=== PATIENT | male | born 1985 | race Caucasian/White ===

== ENCOUNTER 2024-06-24 10:06 | Outpatient (REF) | payer SELFPAY ==
[2024-06-24 11:21] LABS: MANUAL DIFF FLAG NO
--- OUTSIDE RECORDS SUMMARY | 2024-06-24 11:29 | XMS_ITS | Clinical Summary ---
Author Organization [facility] ity Address [address] [place] [address] Care Team Providers Care Dowel Sticker Operator Name Role Phone Unavailable Primary Care Provider Unavailabl e Social History Tobacco Use Types Packs/Day Years Used Date Smoking Tobacco: Never Assessed Sex and Gender Information Value Date Recorded Sex Assigned at Not on file Legal Sex Male 3:58 AM EST Gender Identity Not on file Sexual Orientation Not on file Plan of Treatment Health Maintenance Due Date Last Done Comments DTaP,Tdap,and Td Vaccines (1 - Tdap) 2006 Hepatitis B Vaccines (1 of 3 - 19+ 3-dose series) 2006 COVID-19 Vaccine (2023-2 5 season) 2023 Influenza Vaccine (Season Ended) 2024 HIB Vaccines Aged Out No longer eligi ble based on patient's age to complete this topic HPV Vaccines Aged Out No longer eligi ble based on patient's age to complete this topic Hepatitis A Vaccines Aged Out No long er eligible based on patient's age to complete this topic IPV Vaccines Aged Out No longer eligi ble based on patient's age to complete this topic MMR Vaccines Aged Out No longer eligi ble based on patient's age to complete this topic Meningococcal ACWY Vaccine Aged Out N o longer eligible based on patient's age to complete this topic Meningococcal B Vacine Aged Out No lo nger eligible based on patient's age to complete this topic Pneumococcal Vaccine: Pediat rics (0 to 5 Years) and At-Risk Patients (6 to 64 Years) Aged Out No longer eligible b ased on patient's age to complete this topic RSV Immunization Patients Un dora 20 months Aged Out No longer eligible b ased on patient's age to complete this topic Varicella Vaccines Aged Out No longer eligible based on patient's age to complete this topic
--- OUTSIDE RECORDS SUMMARY | 2024-06-24 11:29 | XMS_ITS | Encounter Summary ---
Author Organization [facility] Address [address] [facility] 7t [place] [address] Care Team Providers Care Supervisor International Reservations Name Role Phone Regina Moran NP Primary Care Provider [phone] Encounter Details Date Type Department Care Team (Latest Contact Info) Description 06/24/2024 Travel Social History Tobacco Use Types Packs/Day Years Used Date Smoking Tobacco: Never Smokeless Tobacco: Never Sex and Gender Information Value Date Recorded Sex Assigned at Male 01/20/2022 10:36 AM EDT Legal Sex Male 10:36 AM EDT Gender Identity Male 01/20/2022 10:36 AM EDT Sexual Orientation Straight 01/20/2022 10 :36 AM EDT documented as of this encounter Plan of Treatment Upcoming Encounters Date Type Department Care Team (Late st Contact Info) Description 07/22/2024 9:00 AM EDT Office Visit [facility] MEDICINE [address] [place] [phone] Bernabe Lucero MD [address] [place] [phone] 09/12/2024 1:00 PM EDT Office Visit [facility] MEDICINE [address] [place] [phone] Regina Moran NP [address] [place] [address] documented as of this encounter Visit Diagnoses Not on filedocumented in this encounter Care Teams Supervisor International Reservations Relationship Specialty Start Date End Date Regina Moran NP [address] [place] [id number] PCP - General Family Medicine 11/25/23 documented as of this encounter
--- OUTSIDE RECORDS SUMMARY | 2024-06-24 11:29 | XMS_ITS | Clinical Summary ---
Author Organization [employer] Address [address] [facility] 7t [place] [address] Care Team Providers Care Plate Gauger Name Role Phone Luisa Regina MIKA Primary Care Provider [phone] Allergies Active Allergy Reactions Criticality Noted Date Comments Sulfa Antibiotics Rash Low 11/11/2016 Medications calcipotriene (Dovonex) 0.005 % ointment Apply topically 2 times daily. 60 g 3 08/05/19 24 Active pimecrolimus (Elidel) 1 % cream Apply topically 2 times daily. 60 g 1 09/16/19 24 025 Active methotrexate 2.5 MG tabletIndicati ons:Psoriasis of scalp,Sebopsor iasis,Inverse psoriasis Take 6 tablets (15 mg total) by mouth 1 (one) time per week. Follow directions carefully, and ask to explain any part you do not understand. Take exactly as directed. 24 tablet 3 06/25/19 25 Active folic acid (Folvite) 1 MG tabletIndicati ons:Psoriasis of scalp,Sebopsor iasis,Inverse psoriasis Take 1 tablet (1 mg) by mouth Once per day. 30 tablet 11 06/25/19 25 026 Active triamcinolone (Kenalog) 0.025 % creamIndicatio ns:Psoriasis of scalp,Sebopsor iasis,Inverse psoriasis Apply topically 2 times daily. 454 g 1 06/25/19 25 Active ketoconazole (NIZOral) 2 % shampooIndicat ions:Sebopsori asis Apply topically 2 (two) times a week. 120 mL 1 06/28/19 25 Active clobetasol (Temovate) 0.05 % creamIndicatio ns:Psoriasis Apply topically if needed in the morning and at bedtime (for psoriasis). 60 g 2 06/04/19 24 025 ketoconazole (NIZOral) 2 % shampoo Apply topically 1 (one) time per week. 120 mL 1 09/16/19 24 025 Discontinued Active Problems Problem Noted Date Diagnosed Date Seborrheic dermatitis 09/21/2023 Overview (09/21/2023): Patient treated unsuccessfully with Dovonex cream to face. The new plan is to treat with Nizoral shampoo and Protopic cream for persistent symptoms. Hemorrhoids 08/11/2016 Eczema of face 08/06/2015 Hypothyroidism 07/17/2015 Overview (10/07/2023): TSH=11.4(06/2015)---> 6.54(07/2015, started Levothyroxine 125mcg). Anti thyroglobulin Ab+ and Anti TPO Ab+. Reportedly he had rash w/ levothyroxine and stopped in [facility]. 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 Given the risk of another allergic reaction we will cautiously start the patient on Tirosin which has been shownto be less allergenogenic in patients prone to allergies. Patient was instructed to stop taking his medication and call the office if he develops any skin rash. He was also instructed to go to the emergency room if he develops significant skin rash, swelling of his face, lips or tongue, or difficulties breathing. Otherwise he may continue on the medication and we will repeat his thyroid function tests in 6 weeks and adjust the dose if necessary. Patient was counselled on the symptoms of both hypothyroidism as well as hyperthyroidism and will call us in the event any such symptoms occur. If everything goes well we will see him for follow-up in one year. he did not have labs in 6 wks or f/u yet. Obesity (BMI 30-39.9) 07/16/2015 Tinea cruris 07/16/2015 Encounters Date Type Department Care Team Description 06/24/2024 9:15 AM EDT Office Visit [address] [address] Bernabe Lucero MD Psoriasis of scalp (Primary Dx); Sebopsoriasis; Inverse psoriasis 06/24/2024 Travel 06/15/[address] [address] Isamar Painter [place] Appointment Request 06/14/[address] [address] Regina Moran NP Appointment Request from Last 3 Months Immunizations Name Administration Dates Next Due Tdap 12/29/2018,02/04/2018 Social History Tobacco Use Types Packs/Day Years Used Date Smoking Tobacco: Never Smokeless Tobacco: Never Tobacco Cessation:Counseling Given: Not Answered Sex and Gender Information Value Date Recorded Sex Assigned at Male 01/20/2022 10:36 AM EDT Legal Sex Male 10:36 AM EDT Gender Identity Male 01/20/2022 10:36 AM EDT Sexual Orientation Straight 01/20/2022 10 :36 AM EDT Last Filed Vital Signs Vital Sign Reading Time Taken Comments Blood Pressure 130/74 06/24/2024 9:32 AM EDT Pulse 80 06/24/2024 9:32 AM EDT Temperature 37.1 ??C (98.7 ??F) 06/24/2024 9:32 AM ED T Respiratory Rate 16 06/24/2024 9:32 AM EDT Oxygen Saturation 97% 09/16/2023 10:10 AM EDT Inhaled Oxygen Concentration - - Weight 112 kg (246 lb 6 oz) 06/24/2024 9:32 AM E DT Height 177.8 cm (5' 10 ) 06/24/2024 9:32 AM EDT Body Mass Index 35.35 06/24/2024 9:32 AM EDT Plan of Treatment Upcoming Encounters Date Type Department Care Team (Late st Contact Info) Description 07/22/2024 9:00 AM EDT Office Visit [address] [address] Bernabe Lucero MD [address] [place] [address], [place] [phone] 09/12/2024 1:00 PM EDT Office Visit [facility] MEDICINE [address] [place], [place] [phone] Regina Moran NP [address] [place], [place] [phone] Health Maintenance Due Date Last Done Comments Depression Screening 1987 SDOH Screening 1987 Alcohol/Substance Use Screening 1999 Family Planning (PISQ) 2002 Hepatitis C Screening 2005 Hepatitis B Vaccines (1 of 3 - 19+ 3-dose series) 2006 COVID-19 Vaccine ( - 2023-2 5 season) 2023 Influenza Vaccine (#1) 2023 Tobacco Screening 09/20/2024 09/21/2023 Lipid Panel 10/14/2026 10/14/2021 DTaP/Tdap/Td Vaccines (3 - T d or Tdap) 12/29/2028 12/29/2018, 02/04/2018 Zoster Vaccines (1 of 2) 2037 RSV Patients and Patients Aged 60 years or older (1 - 1-dose 75+ series) 2062 HIV Screening Completed 10/14/2021 HIB Vaccines Aged Out No longer eligi [...] patient's age to complete this topic Meningococcal Vaccine Aged Out No phi booker eligible based on patient's age to complete this topic Pneumococcal Vaccine: Pediatrics (0 to 5 Years) and At-Risk Patients (6 to 49) Years) Aged Out No longer eligible b ased on patient's age to complete this topic RSV under 20 months Aged Out No longe r eligible based on patient's age to complete this topic Rotavirus Vaccines Aged Out No longer eligible based on patient's age to complete this topic Procedures Procedure Name Priority Date/Time Associated Diagnosis Comments HIV 1/2 ANTIGEN/ANTIBODY, FOURTH GENERATION W/RFL Routine 10/14/2021 3:21 PM EDT LIPID PANEL, STANDARD Routine 10/14/2021 3:21 PM EDT from Last 3 Months or Most Recently Relevant to Health Maintenance Results * HIV 1/2 ANTIGEN/ANTIBODY,FOURTH GENERATION W/RFL (10/14/2021 3:21 PM EDT) [facility] HIV-1/2 ANTIGEN AND ANTIBODIES, 4TH GENERATION W/ REFLEX NON-REACT DOUG NON-REACT DOUG [facility] Comment: HIV-1 antigen and HIV-1/HIV-2 antibodies were not detected. There is no laboratory evidence of HIV infection. ?? PLEASE NOTE: This information has been disclosed to you from records whose confidentiality may be protected by state law. ??If your state requires such protection, then the state law prohibits you from making any further disclosure of the information without the specific written consent of the person to whom it pertains, or as otherwise permitted by law. A general authorization for the release of medical or other information is NOT sufficient for this purpose. ? For additional information please refer to http://education.Brainwave Education.Flapshare/faq/VTW809 (This link is being provided for informational/ educational purposes only.) ? The performance of this assay has not been clinically validated in patients less than 2 years old. ?? 10/14/2021 3:21 PM EDT us Jean Nagel MD LAB BLOOD ORDERABLES Final R esult [facility] [address] * (ABNORMAL) LIPID PANEL, STANDARD (10/14/2021 3:21 PM EDT) [facility] Chol/HDLC Ratio 4.1 <5.0 (calc) [facility] Cholesterol, Total 153 <200 mg/dL [facility] HDL Cholesterol 37(L) > OR = 40 mg/dL [facility] LDL Cholesterol 89 mg/dL (calc) [facility] Comment: Reference range: <100 ?? Desirable range <100 mg/dL for primary prevention; ?? <70 mg/dL for patients with CHD or diabetic patients ?? with > or = 2 CHD risk factors. ?? LDL-C is now calculated using the Panfilo ?? calculation, which is a validated novel method providing ?? better accuracy than the Friedewald equation in the ?? estimation of LDL-C. ?? Chester SMALLWOOD et al. IZZY. 2013;310(19): 0719-1017 ?? (http://H3 Polímeros.Help Me Rent Magazine/faq/ORI829) Non-HDL Cholesterol 116 <130 mg/dL (calc) [facility] Comment: For patients with diabetes plus 1 major ASCVD risk ?? factor, treating to a non-HDL-C goal of <100 mg/dL ?? (LDL-C of <70 mg/dL) is considered a therapeutic ?? option. Triglycerides 178(H) <150 mg/dL [facility] 10/14/2021 3:21 PM EDT us Jean Nagel MD LAB BLOOD ORDERABLES Final R esult [facility] [address] from Last 3 Months or Most Recently Relevant to Health Maintenance Insurance [facility] PPO Care Teams Plate Gauger Relationship Specialty Start Date End Date Regina Moran NP [address] [place] [phone] PCP - General Family Medicine 11/25/23
--- OUTSIDE RECORDS SUMMARY | 2024-06-24 11:29 | XMS_ITS | Clinical Summary ---
Author Organization [facility] Address [address] [place] [address] Care Team Providers Care Plate Straightener Name Role Phone Beth Beverlyreet SUPERVISOR MAINTENANCE Primary Care Provider [phone] Source Comments PLEASE NOTE, if this patient is a minor, it may be UNLAWFUL to discuss sensitive information that is contained in these records (such as FAMILY PLANNING, MENTAL HEALTH or SUBSTANCE ABUSE) with the minor patient's parent or other person without the patient's specific authorization.[facility] Allergies Active Allergy Reactions Criticality Noted Date Comments Sulfa (Sulfonamide Antibiotics) Rash 10/22 Medications levothyroxine (TIROSINT) 125 mcg capsule Take 125 mcg by mouth every morning Active docusate sodium (COLACE) 100 mg capsuleIndication s:Constipation, unspecified constipation type Take 1 Cap by mouth 2 (two) times daily 60 Cap 5 8 Active polyethylene glycol 3350 (GLYCOLAX, MIRALAX) 17 gram packetIndications :Constipation, unspecified constipation type Take 17 g by mouth once daily 30 Each 3 8 Active clotrimazole-beta methasone (LOTRISONE) 1-0.05 % creamIndications: Tinea cruris Apply topically 2 (two) times daily 45 g 8 Active Active Problems Problem Noted Date Diagnosed Date Hemorrhoids 08/11/2016 Eczema of face 08/06/2015 Hypothyroidism 07/17/2015 Overview (05/29/2016): TSH=11.4(06/2015)---> 6.54(07/2015, started Levothyroxine 125mcg). Anti thyroglobulin Ab+ and Anti TPO Ab+. Reportedly he had rash w/ levothyroxine and stopped in [facility] ER. Was seen by Endocrine [place] [facility] [place], hypothyroidism likely [...] Obesity (BMI 30-39.9) 07/16/2015 Tinea cruris 07/16/2015 Immunizations Immunization Administration Dates Next Due TDAP 02/04/2018 Family History Medical History Relation Name Comments Cancer Mother breast ca Asthma Sister Lupus Relation Name Status Comments Father Alive Mother Alive Sister Lupus Alive Social History Tobacco Use Types Packs/Day Years Used Date Smoking Tobacco: Never Smokeless Tobacco: Never Tobacco Cessation:Counseling Given: Yes Alcohol Use Standard Drinks/Week Comments Yes 3 (1 standard drink = 0.6 oz pur e alcohol) very occasionally Social Connections Answer Date Recorded Social Connections and Isolation 0 11/14/2018 Financial Resource Strain Answer Date R ecorded Financial Resource Strain 0 2018 Stress Answer Date Recorded Stress 0 11/14/2018 Physical Activity Answer Date Recorded Physical Activity 0 11/14/2018 Food Insecurity Answer Date Recorded Food 0 11/14/2018 Transportation Needs Answer Date Record ed Transportation 0 11/14/2018 Housing Stability Answer Date Recorded Housing 0 11/14/2018 Safety and Environment Answer Date Huber rded Safety 0 11/14/2018 Utilities Answer Date Recorded Utilities 0 11/14/2018 Employment Answer Date Recorded Employment 0 11/14/2018 Sex and Gender Information Value Date Recorded Sex Assigned at Male 02/04/2018 7:20 AM PST Legal Sex Male 11:53 AM PST Gender Identity Male 02/04/2018 7:20 AM PST Sexual Orientation Straight 02/04/2018 7: 20 AM PST 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 Not on file Not on file Not on file Last Filed Vital Signs Vital Sign Reading Time Taken Comments Blood Pressure 110/68 02/04/2018 10:21 AM EST Pulse 68 02/04/2018 10:21 AM EST Temperature 36.4 ??C (97.5 ??F) 02/04/2018 10:[address] Respiratory Rate 16 02/04/2018 10:21 AM EST Oxygen Saturation - - Inhaled Oxygen Concentration - - Weight 91.2 kg (201 lb) 02/04/2018 10:21 AM EST Height 176 cm (5' 9.29 ) 02/04/2018 10:21 AM EST Body Mass Index 29.43 02/04/2018 10:21 AM EST Plan of Treatment Not on file Insurance [employer] Care Teams Plate Straightener Relationship Specialty Start Date End Date Loc Beverly NP [address] [place] [id number] PCP - General SUPERVISOR MAINTENANCE Nurse Practitioner 01/21/18
--- OUTSIDE RECORDS SUMMARY | 2024-06-24 11:29 | XMS_ITS | Encounter Summary ---
Author Organization [employer] Address [address] [facility] 7t [place] [address] Care Team Providers Care Jowl Trimmer Name Role Phone Regina Moran MIKA Primary Care Provider [phone] Encounter Details Date Type Department Care Team (Late st Contact Info) Description 06/24/2024 9:15 AM EDT Office Visit [facility] MEDICINE [address] [place] [address] Bernabe Lucero MD [address] [place] [address] Psoriasis of scalp (Primary Dx); Sebopsoriasis; Inverse psoriasis Social History Tobacco Use Types Packs/Day Years Used Date Smoking Tobacco: Never Smokeless Tobacco: Never Sex and Gender Information Value Date Recorded Sex Assigned at Male 01/20/2022 10:36 AM EDT Legal Sex Male 10:36 AM EDT Gender Identity Male 01/20/2022 10:36 AM EDT Sexual Orientation Straight 01/20/2022 10 :36 AM EDT documented as of this encounter Last Filed Vital Signs Vital Sign Reading Time Taken Comments Blood Pressure 130/74 06/24/2024 9:32 AM EDT Pulse 80 06/24/2024 9:32 AM EDT Temperature 37.1 ??C (98.7 ??F) 06/24/2024 9:32 AM ED T Respiratory Rate 16 06/24/2024 9:32 AM EDT Oxygen Saturation - - Inhaled Oxygen Concentration - - Weight 112 kg (246 lb 6 oz) 06/24/2024 9:32 AM E DT Height 177.8 cm (5' 10 ) 06/24/2024 9:32 AM EDT Body Mass Index 35.35 06/24/2024 9:32 AM EDT documented in this encounter Progress Notes * Kefah Al-Ramahi, MD - 06/24/2024 9:15 AM EDT Subjective Patient ID: Keny Raza is a 39 y.o. male who presents for No chief complaint on file.. HPI 39 yr old man with hx of psoriasis and previously treated with topical tx without improvement. Review of Systems Constitutional: Negative for diaphoresis, fatigue and fever. HENT: Negative for ear discharge, ear pain, facial swelling and hearing loss. Respiratory: Negative for cough, choking, chest tightness and shortness of breath. Cardiovascular: Negative for chest pain and leg swelling. Gastrointestinal: Negative for abdominal distention, abdominal pain and anal bleeding. Endocrine: Negative for cold intolerance and heat intolerance. Genitourinary: Negative for enuresis, flank pain and frequency. Musculoskeletal: Negative for arthralgias, back pain and gait problem. Skin: Positive for rash. Neurological: Negative for dizziness, facial asymmetry and headaches. Psychiatric/Behavioral: Negative for agitation, behavioral problems and confusion. Objective Physical Exam Constitutional: Appearance: Normal appearance. HENT: Head: Normocephalic. Nose: Nose normal. Eyes: Extraocular Movements: Extraocular movements intact. Pulmonary: Effort: Pulmonary effort is normal. Musculoskeletal: Cervical back: Normal range of motion and neck supple. Skin: General: Skin is warm and dry. Comments: Erythematous scaly plaques on face Erythematous plaques without scaling in umbilicus , between buttocks and penis as well genitalia Neurological: Mental Status: He is alert. Mental status is at baseline. Assessment/Plan 39 yr old man with hx of psoriasis for yrs has been on topical tx only, with little relief, here today for consultation. His condition is unstable It involves his face, scalp and intertriginous areas like umbilicus, between buttocks and genitals. At this stage his psoriasis would not respond to topicals and he would need systemic tx Blood work ordered for baseline eval He will be started in Methotrexate and folic acid Tac 0.025% cream RX sent (not to exceed 4 weeks of tx) For his facial and scalp plaques , there is potential for Alistair dermatitis occurring simultaneously, so I added Nizoral shampoo 2% 2-3 times weekly RTC in 6-8 weeks Diagnoses and all orders for this visit: Psoriasis of scalp - CBC auto differential; Future - Comprehensive Metabolic Panel; Future - QuantiFERON TB Gold; Future - Hepatitis A,B,C Profile; Future - HIV-1/2 Antigen and Antibodies, Fourth Generation, with Reflexes; Future - methotrexate 2.5 MG tablet; Take 6 tablets (15 mg total) by mouth 1 (one) time per week. Follow directions carefully, and ask to explain any part you do not understand. Take exactly as directed. - folic acid (Folvite) 1 MG tablet; Take 1 tablet (1 mg) by mouth Once per day. - triamcinolone (Kenalog) 0.025 % cream; Apply topically 2 times daily. Sebopsoriasis - CBC auto differential; Future - Comprehensive Metabolic Panel; Future - QuantiFERON TB Gold; Future - Hepatitis A,B,C Profile; Future - HIV-1/2 Antigen and Antibodies, Fourth Generation, with Reflexes; Future - methotrexate 2.5 MG tablet; Take 6 tablets (15 mg total) by mouth 1 (one) time per week. Follow directions carefully, and ask to explain any part you do not understand. Take exactly as directed. - folic acid (Folvite) 1 MG tablet; Take 1 tablet (1 mg) by mouth Once per day. - triamcinolone (Kenalog) 0.025 % cream; Apply topically 2 times daily. - ketoconazole (NIZOral) 2 % shampoo; Apply topically 2 (two) times a week. Inverse psoriasis - CBC auto differential; Future - Comprehensive Metabolic Panel; Future - QuantiFERON TB Gold; Future - Hepatitis A,B,C Profile; Future - HIV-1/2 Antigen and Antibodies, Fourth Generation, with Reflexes; Future - methotrexate 2.5 MG tablet; Take 6 tablets (15 mg total) by mouth 1 (one) time per week. Follow directions carefully, and ask to explain any part you do not understand. Take exactly as directed. - folic acid (Folvite) 1 MG tablet; Take 1 tablet (1 mg) by mouth Once per day. - triamcinolone (Kenalog) 0.025 % cream; Apply topically 2 times daily. documented in this encounter Plan of Treatment Upcoming Encounters Date Type Department Care Team (Late st Contact Info) Description 07/22/2024 9:00 AM EDT Office Visit [facility] MEDICINE [address] [place] [address] Bernabe Lucero MD [address] [place] [address] 09/12/2024 1:00 PM EDT Office Visit [facility] MEDICINE [address] [place] [address] Regina Moran NP [address] [place] [address] Scheduled Orders Name Type Priority Associated Diagnoses Orde r Schedule CBC auto differential Lab Routine Psoriasis of scalp Sebopsoriasis Inverse psoriasis Expected: 06/24/2024 (Approximate), Expires: 06/24/2025 Comprehensive Metabolic Panel Lab Routine Psoriasis of scalp Sebopsoriasis Inverse psoriasis Expected: 06/24/2024 (Approximate), Expires: 06/24/2025 QuantiFERON TB Gold Lab Routine Psoriasis of scalp Sebopsoriasis Inverse psoriasis Expected: 06/24/2024 (Approximate), Expires: 06/24/2025 Hepatitis A,B,C Profile Lab Routine Psoriasis of scalp Sebopsoriasis Inverse psoriasis Expected: 06/24/2024, Expires: 06/24/2025 HIV-1/2 Antigen and Antibodies, Fourth Generation, with Reflexes Lab Routine Psoriasis of scalp Sebopsoriasis Inverse psoriasis Expected: 06/24/2024 (Approximate), Expires: 06/24/2025 documented as of this encounter Visit Diagnoses Diagnosis Psoriasis of scalp- Primary Sebopsoriasis Inverse psoriasis Other psoriasis documented in this encounter Care Teams Jowl Trimmer Relationship Specialty Start Date End [place] [address] PCP - General Family Medicine 11/25/23 documented as of this encounter
[2024-06-24 11:33] LABS: Basophils Percent Auto 0.5 % (0-2); Eosinophils Absolute Auto 0.2 X10*3/uL (0.0-0.4); Eosinophils Percent Auto 2.1 % (0-4); Hematocrit 43.5 % (42.0-52.0); Hemoglobin 14.6 g/dl (14.0-18.0); Imm Gran Abs Auto 0.02 X10*3/uL (0.00-0.03); Imm Gran Pct Auto 0.3 % (0.0-0.4); Lymphocytes Absolute Auto 1.7 X10*3/uL (1.2-4.9); Lymphocytes Percent Auto 22.6 % (20-40); Mean Corpuscular HGB Conc 33.6 g/dl (31.0-36.0); Mean Corpuscular Hemoglobin 29.7 pg (27.0-33.0); Mean Corpuscular Volume 88.4 fL (80.0-98.0); Mean Platelet Volume 10.7 fL (9.4-12.4); Monocytes Absolute Auto 0.6 X10*3/uL (0.1-1.2); Monocytes Percent Auto 7.5 % (2-11); Neutrophils Absolute Auto 5.2 x10*3/uL (2.0-8.3); Platelet Count 256 X10*3/uL (160-400); Red Blood Count 4.92 X10*6/uL (4.60-5.80); Red Cell Distribution Width 12.8 % (11.0-16.0); White Blood Count 7.7 X10*3/uL (4.8-10.8)
[2024-06-24 12:37] LABS: Alanine Aminotransferase 49 U/L (0-40); Albumin Level 4.3 g/dL (3.5-5.0); Alkaline Phosphatase 67 U/L (39-117); Anion Gap 14 (12-20); Aspartate Amino Transferase 34 U/L (5-37); Bilirubin Total 0.4 mg/dL (0.0-1.0); Blood Urea Nitrogen 11 mg/dL (9-16); Calcium 9.4 mg/dL (8.4-10.2); Carbon Dioxide 25 mmol/L (22-29); Chloride 106 mmol/L (96-108); Estimated Glomerular Filt Rate > 60; Glucose Random 93 mg/dL (60-115); Potassium 3.9 mmol/L (3.3-5.1); Sodium 141 mmol/L (135-145)
[2024-06-24 12:40] LABS: HBS Num1 1.17 mIU/mL (0-7.99); HBc Num1 0.18 S/CO (0.00-0.79); HBsAGNum1 0.29 S/CO (0.00-0.99); HIV AB/AG Nonreactive (Nonreactive); HIV Num 1 0.06 S/CO (0.00-0.99); Hepatitis A Antibody IgM 0.15 Index (0-0.79); Hepatitis B Core Antibody Nonreactive (Nonreactive); Hepatitis B Surface Antigen Negative (Negative); ~HepC Num1 0.13 S/CO (0.00-0.79); ~Hepatitis A Antibody IgM Nonreactive (Nonreactive); ~Hepatitis B Surface Antibody NONREACTIVE (Nonreactive); ~Hepatitis C Antibody Nonreactive (Nonreactive)
== END 2024-06-24 10:07 | disposition home or self-care (01) ==
LOC: HO.HHCL 10:06
PROVIDERS: Visit Provider Internal Medicine
DX: L40.9 Psoriasis, unspecified (principal); L40.8 Other psoriasis
CPT/HCPCS: 36415; 80053; 85025; 86704; 86706; 86709; 86803; 87340; 87389

== ENCOUNTER 2024-09-12 13:56 | Outpatient (REF) | payer BC, SELFPAY ==
--- OUTSIDE RECORDS SUMMARY | 2024-09-12 15:32 | XMS_ITS | Clinical Summary ---
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 120 mL 1 06/28/19 25 Active calcipotriene (Dovonex) 0.005 % ointment Apply topically 2 times daily. 60 g 3 08/05/19 24 025 Discontinued(Me d list cleanup (will not trigger notification to Pharmacy)) pimecrolimus (Elidel) 1 % cream Apply topically 2 times daily. 60 g 1 09/16/19 24 025 Discontinued(Me d list cleanup (will not trigger notification to Pharmacy)) Active Problems Problem Noted Date Diagnosed Date [...] had rash w/ levothyroxine and stopped in [facility] ER. 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); Obesity (BMI 30-39.9); Sexually transmitted disease counseling 09/12/2024 Travel 09/02/2024 Patient Outreach [facility] [address] [place] [address] Regina Moran NP Pre-visit Planning ([facility] unable to reach [facility]) 07/21/[address] [address] Regina Moran NP Appointment Request 07/15/[address] [address] Bernabe Lucero MD Psoriasis of scalp; Sebopsoriasis; Inverse psoriasis 06/24/2024 9:15 AM EDT Office Visit [address] [address] Bernabe Lucero MD Psoriasis of scalp (Primary Dx); Sebopsoriasis; Inverse psoriasis 06/24/2024 Travel 06/15/[address] [address] Isamar Painter [place] Appointment Request 06/14/[address] [address] Regina Moran NP Appointment Request from Last 3 Months Immunizations Immunization Administration Dates Next Due Tdap 12/29/2018,02/04/2018 Family History Medical History Relation Name Comments Asthma Brother Breast cancer Mother Thyroid disease Mother Asthma Sister Relation Name Status Comments Brother Mother Sister Social History Tobacco Use Types Packs/Day Years Used Date Smoking Tobacco: Never Smokeless Tobacco: Never Tobacco Cessation:Counseling Given: Not Answered Alcohol Use Standard Drinks/Week Comments Yes 0 (1 standard drink = 0.6 oz pur e alcohol) about once q 2 months Alcohol Answer Date Recorded How often do you have a drink containing alcohol ? 1 09/12/2024 How many drinks containing a lcohol do you have on a typical day when you are drinking? 2 09/12/2024 How often do you have six or more drinks on one occasion? 0 09/12/2024 Depression Answer Date Recorded Patient Health Questionnaire-9 Score 3 09/12/2024 Patient Health Questionnaire-9 Score 3 09/12/2024 Last PHQ-9: Questionnaire Data Not on file 0 09/12/2024 Housing Stability Answer Date Recorded What is your housing situation today? I have dixon marie 09/12/[address] you li ve. Do you have problems with any of the following? None of the above 09/12/2024 Food Insecurity Answer Date Recorded Within the past 12 months, y ou worried that your food would run out before you got money to buy more: Never True 09/12/2024 Within the past 12 months,th e food you bought just didn't last and you didn't have enough money to get more: Never True Transportation Answer Date Recorded In the past 12 months, has l ack of transportation kept you from medical appts, meetings, work or from getting things needed for daily living? No 09/12/2024 Utilities Answer Date Recorded In the past 12 months, has t he electric, gas, oil or water company threatened to shut off services in your home? No 09/12/2024 Depression Answer Date Recorded Patient Health Questionnaire-2 Score 0 09/12/2024 Internet Access Answer Date Recorded Internet Access Q1 Yes 09/12/2024 Internet Access Q2 Not on file 09/12/2024 Sex and Gender Information Value Date Recorded Sex Assigned at Male 01/20/2022 10:36 AM EDT Legal Sex Male 10:36 AM EDT Gender Identity Male 01/20/2022 10:36 AM EDT Sexual Orientation Straight 01/20/2022 10 :36 AM EDT Last Filed Vital Signs Vital Sign Reading Time Taken Comments Blood Pressure 130/80 09/12/2024 1:08 PM EDT Pulse 116 09/12/2024 1:08 PM EDT Temperature 37.3 C (99.1 F) 09/12/2024 1:08 PM EDT Respiratory Rate 26 09/12/2024 1:08 PM EDT Oxygen Saturation 97% 09/12/2024 1:08 PM EDT Inhaled Oxygen Concentration - - Weight 117 kg (257 lb) 09/12/2024 1:08 PM EDT Height 177.8 cm (5' 10 ) 09/12/2024 1:08 PM EDT Body Mass Index 36.88 09/12/2024 1:08 PM EDT Plan of Treatment Upcoming Encounters Date Type Department Care Team (Late st Contact Info) Description 10/28/2024 9:15 AM EDT Office Visit [facility] [address] [place] [address] Bernabe Lucero MD [address] [place] [address] Health Maintenance Due Date Last Done Comments Family Planning (PISQ) 2002 Hepatitis B Vaccines (1 of 3 - 19+ 3-dose series) 2006 COVID-19 Vaccine ( - 2023-2 5 season) 2023 Influenza Vaccine (Season Ended) 2024 Alcohol/Substance Use Screening 09/12/2025 09/12/2024 Depression Screening 09/12/2025 09/12/2024, 09/12/2024 Disability Screening 09/12/2025 09/12/2024 SDOH Screening 09/12/2025 09/12/2024 Tobacco Screening 09/12/2025 09/12/2024 Lipid Panel 10/14/2026 10/14/2021 DTaP/Tdap/Td Vaccines (3 - T d or Tdap) 12/29/2028 12/29/2018, 02/04/2018 Zoster Vaccines (1 of 2) 2037 RSV Patients and Patients Aged 60 years or older (1 - 1-dose 75+ series) 2062 HIV Screening Completed 06/24/2024, 10/14/2021 Hepatitis C Screening Completed 06/24/2024 HIB Vaccines Aged Out No longer eligi [...] age to complete this topic Meningococcal B Vaccine Aged Out No l onger eligible based on patient's age to complete this topic Meningococcal Vaccine Aged Out No phi booker eligible based on patient's age to complete this topic Pneumococcal Vaccine: Pediatrics (0 to 5 Years) and At-Risk Patients (6 to 49) Years Aged Out No longer eligible b ased on patient's age to complete this topic RSV under 20 months Aged Out No longe r eligible based on patient's age to complete this topic Rotavirus Vaccines Aged Out No longer eligible based on patient's age to complete this topic Procedures Procedure Name Priority Date/Time Associated Diagnosis Comments HIV 1/2 ANTIGEN/ANTIBODY, FOURTH GENERATION W/RFL Routine 06/24/2024 10:08 AM EDT Psoriasis of scalp Sebopsoriasis Inverse psoriasis HEPATITIS PANEL, GENERAL Routine 06/24/2024 10:08 AM EDT Psoriasis of scalp Sebopsoriasis Inverse psoriasis COMPREHENSIVE METABOLIC PANEL Routine 06/24/2024 10:08 AM EDT Psoriasis of scalp Sebopsoriasis Inverse psoriasis CBC WITH AUTO DIFFERENTIAL Routine 06/24/2024 10:08 AM EDT Psoriasis of scalp Sebopsoriasis Inverse psoriasis LIPID PANEL, STANDARD Routine 10/14/2021 3:21 PM EDT from Last 3 Months or Most Recently Relevant to Health Maintenance Results * Hepatitis A,B,C Profile (06/24/2024 10:08 AM EDT) Hepatitis A IgM Nonreactive Nonreactive [facility] Comment:IgM antibodies to PETTY V not detected; does not exclude earlyacute or recovered HAV infection. ~Hepatitis B Surface Antibody NONREACTIVE Nonreactive [facility] Comment:Nonreactive: < 8.00 mIU/mL Hepatitis B Core Antibody Nonreactive Nonreactive [facility] Hepatitis C Antibody Nonreactive Nonreactive [facility] Comment:Antibodies to HCV no t detected; does not exclude early acuteHCV infection. Hepatitis B Surface Ag Negative Negative [facility] Blood Venous blood specimen / Unknown 06/24/2024 10:08 AM EDT 06/24/2024 11:18 AM EDT us Bernabe Lucero MD LAB BLOOD ORDERABLES Final Re sult [facility] [address] [place] [address] [phone] * CBC auto differential (06/24/2024 10:08 AM EDT) White Blood Count 7.7 4.8 - 10.8 X10*3/uL [facility] Red Blood Count 4.92 4.60 - 5.80 X10*6/uL [facility] Hemoglobin 14.6 14.0 - 18.0 g/dl [facility] Hematocrit 43.5 42.0 - 52.0 % [facility] Mean Corpuscular Volume 88.4 80.0 - 98.0 fL [facility] Mean Corpuscular Hemoglobin 29.7 27.0 - 33.0 pg [facility] Mean Corpuscular HGB Conc 33.6 31.0 - 36.0 g/dl [facility] Red Cell Distribution Width 12.8 11.0 - 16.0 % [facility] Platelet Count 256 160 - 400 X10*3/uL [facility] Mean Platelet Volume 10.7 9.4 - 12.4 fL [facility] Neutrophils Percent Auto 67.0 45 - 73 % [facility] Imm Gran Pct Auto 0.3 0.0 - 0.4 % [facility] Lymphocytes Percent Auto 22.6 20 - 40 % [facility] Monocytes Percent Auto 7.5 2 - 11 % [facility] Eosinophils Percent Auto 2.1 0 - 4 % [facility] Basophils Percent Auto 0.5 0 - 2 % [facility] NRBC Pct Auto 0.0 0.0 - 0.2 /100WBC [facility] Neutrophils Absolute Auto 5.2 2.0 - 8.3 x10*3/uL [facility] Imm Gran Abs Auto 0.02 0.00 - 0.03 X10*3/uL [facility] Lymphocytes Absolute Auto 1.7 1.2 - 4.9 X10*3/uL [facility] Monocytes Absolute Auto 0.6 0.1 - 1.2 X10*3/uL [facility] Eosinophils Absolute Auto 0.2 0.0 - 0.4 X10*3/uL [facility] Basophils Absolute Auto 0.0 0.0 - 0.2 X10*3/uL [facility] NRBC Abs Auto 0.000 0.0 - 0.012 X10*3/uL [facility] Blood Venous blood specimen / Unknown 06/24/2024 10:08 AM EDT 06/24/2024 11:18 AM EDT Bernabe Lucero MD LAB BLOOD ORDERABLES Final Re sult Performing Organization Address [facility] Co de Phone Number [facility] [address] [place] [phone] * HIV-1/2 Antigen and Antibodies, Fourth Generation, with Reflexes (06/24/2024 10:08 AM EDT) [facility] HIV AB/AG Nonreactive Nonreactive [facility] Comment:HIV-1 p24 Ag and/or HIV-1/HIV-2 Ab not detected.A test result that is nonreactive does not exclude thepossibility of exposure to or infection with HIV-1 and/orHIV-2. Nonreactive results in this assay for individualswith prior exposure to HIV-1 and/or HIV-2 may be due toantigen and antibody levels that are below the limit ofdetection of this assay.[employer] HIV Ag/Ab Combo assay result andsupplemental assay results should be interpreted inconjunction with the patient's clinical presentation,history and other laboratory results. If the results areinconsistent with clinical evidence, additional testing issuggested to confirm the result. Blood Venous blood specimen / Unknown 06/24/2024 10:08 AM EDT 06/24/2024 11:18 AM EDT Bernabe Lucero MD LAB BLOOD ORDERABLES Final Re sult Performing Organization Address [facility] Co de Phone Number [facility] [address] [place] [address] [phone] * (ABNORMAL) Comprehensive Metabolic Panel (06/24/2024 10:08 AM EDT) Sodium 141 135 - 145 mmol/L [facility] Potassium 3.9 3.3 - 5.1 mmol/L [facility] Chloride 106 96 - 108 mmol/L [facility] Carbon Dioxide 25 22 - 29 mmol/L [facility] Anion Gap 14 12 - 20 [facility] Urea Nitrogen (BUN) 11 9 - 16 mg/dL [facility] Creatinine, Serum 1.13 0.5 - 1.4 mg/dL [facility] Estimated Glomerular Filt Rate >60 [facility] Comment:Chronic Kidney Disea se: Estimated GFR < 60 mL/min/1.44v7Zcdvsq Kidney Disease: Estimated GFR < 15 mL/min/1.73m2 Glucose 93 60 - 115 mg/dL [facility] Calcium 9.4 8.4 - 10.2 mg/dL [facility] Bilirubin, Total 0.4 0.0 - 1.0 mg/dL [facility] Aspartate Amino Transferase 34 5 - 37 U/L [facility] Alanine Aminotransferase 49(H) 0 - 40 U/L [facility] Total Protein 8.0 6.5 - 8.0 g/dL [facility] Albumin Level 4.3 3.5 - 5.0 g/dL [facility] Alkaline Phosphatase 67 39 - 117 U/L [facility] Blood Venous blood specimen / Unknown 06/24/2024 10:08 AM EDT 06/24/2024 11:18 AM EDT us Bernabe Lucero MD LAB BLOOD ORDERABLES Final Re sult [facility] [address] [place] [phone] [phone] * (ABNORMAL) LIPID PANEL, STANDARD (10/14/2021 3:21 PM EDT) Chol/HDLC Ratio 4.1 <5.0 (calc) [facility] Cholesterol, Total 153 <200 mg/dL [facility] HDL Cholesterol 37(L) > OR = 40 mg/dL [facility] LDL Cholesterol 89 mg/dL (calc) [facility] Comment: Reference range: <100 Desirable range <100 mg/dL for primary prevention; <70 mg/dL for patients with CHD or diabetic patients with > or = 2 CHD risk factors. LDL-C is now calculated using the Panfilo calculation, which is a validated novel method providing better accuracy than the Friedewald equation in the estimation of LDL-C. Chester SS et al. IZZY. 2013;310(19): 2792-1448 (http://education.[employer]/faq/VNU297) Non-HDL Cholesterol 116 <130 mg/dL (calc) [facility] Comment: For patients with diabetes plus 1 major ASCVD risk factor, treating to a non-HDL-C goal of <100 mg/dL (LDL-C of <70 mg/dL) is considered a therapeutic option. Triglycerides 178(H) <150 mg/dL [facility] 10/14/2021 3:21 PM EDT us Jean Nagel MD LAB BLOOD ORDERABLES Final R esult [facility] [address] from Last 3 Months or Most Recently Relevant to Health Maintenance Insurance BC PPO Care Teams Photogravure Press Operator Relationship Specialty Start Date End Date Regina Moran NP [address] [place], [place] [phone] PCP - General Family Medicine 11/25/23
[2024-09-12 16:23] LABS: Estimated Average Glucose 100 mg/dL; Hemoglobin A1c % 5.1 % (<6.0); Total Hemoglobin (HGBA1C) 3853.1868 umol/L
[2024-09-12 16:48] LABS: Cholesterol 187 mg/dL (<200); HDL Cholesterol 38 mg/dL (>40); LDL Cholesterol Calculated 115 mg/dL (<100); Triglycerides 174 mg/dL (<150)
[2024-09-12 17:02] LABS: TSH reflex Free T4 2.55 uIU/mL (0.32-4.0)
[2024-09-13 08:19] LABS: HIV AB/AG Nonreactive (Nonreactive); HIV Num 1 0.06 S/CO (0.00-0.99)
[2024-09-13 08:25] LABS: Syphilis Screen Nonreactive (Nonreactive)
== END 2024-09-12 13:57 | disposition home or self-care (01) ==
LOC: HO.HHCL 13:56
PROVIDERS: PCP Nurse Practitioner; Visit Provider Nurse Practitioner
DX: E06.3 Autoimmune thyroiditis (principal); E66.9 Obesity, unspecified; Z70.8 Other sex counseling
CPT/HCPCS: 36415; 80061; 83036; 84443; 86780; 87389

== ENCOUNTER 2024-10-15 10:06 | Emergency (ER) | payer BC, SELFPAY ==
[2024-10-15 10:11] VITALS: BP 126/89; PULSE 80; RESP 16; TEMP 36.6; O2SAT 96; BMI 36.9
--- NOTE | 2024-10-15 10:34 | ED.GENADULT ---
HPI - General Adult General Chief complaint: General Medical Stated complaint: hemorrhoids with bleeding Time Seen by Provider: 10/15/24 10:10 Source: patient and family Mode of arrival: ambulatory Limitations: no limitations History of Present Illness ED Provider: Rakel Burgos APRN HPI narrative: 39 yo male with history of psoriasis here with complaints Of rectal pain since Thursday. Patient reports initially he felt some pain and swelling in his rectal area and then had a large amount of bleeding for several days. He reports with time swelling has improved as well as pain. He is no longer having any bleeding. He denies any history of hemorrhoids. He did speak to his primary care doctor who recommended he take Colace twice daily which he has been taking. He initially had constipation but feels that this is improved. He denies any associated abdominal pain, vomiting. No personal or family history of rectal or colon cancer. He has never had a colonoscopy before. 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 Related Data Previous Rx's ?Medication ?Instructions ?Recorded hydrocortisone 2.5 % topical cream 1 appl [place] DAILY PRN hemorrhoids 10/15/24 with perineal applicator #30 grams ([employer] [facility]) Allergies Allergy/AdvReac Type Severity Reaction Status Date / Time No Known Allergies Allergy Verified 10/15/24 10:11 Review of Systems Review of Systems: Yes all other systems are reviewed and are negative Constitutional: Constitutional: Reports no additional constitutional complaints, Denies body ache(s), Denies chills, Denies fever(s), Denies headache(s) and Denies weakness Eyes: Eyes: Reports no additional eye complaints and Denies change in vision ENT: Reports system reviewed and no additional complaints, except as documented, Denies dizziness, Denies headache(s), Denies nasal congestion, Denies nasal discharge and Denies neck pain Cardiovascular: Cardiovascular: Reports no additional cardiovascular complaints, Denies chest pain, Denies leg edema and Denies dyspnea Respiratory: Respiratory: Reports no additional respiratory complaints, Denies cough and Denies dyspnea Gastrointestinal: Gastrointestinal: Reports no additional gastrointestinal complaints, Denies abdominal pain, Denies diarrhea, Denies nausea and Denies vomiting Genitourinary: Genitourinary: Denies urinary incontinence Musculoskeletal: Musculoskeletal: Reports no additional musculoskeletal complaints, Denies back pain, Denies arthralgias, Denies joint swelling, Denies neck pain, Denies numbness and Denies tingling Integumentary/Breasts: Skin/Breast: Reports system reviewed and no additional complaints, except as docu and Denies rash Neurologic: Reports system reviewed and no additional complaints, except as documented, Denies Abnormal speech present, Denies dizziness, Denies headache(s), Denies numbness, Denies tingling and Denies weakness PMF Past Medical History Attestation statement: The following information was validated with the patient. Source: old records reviewed and nursing notes reviewed Social History Social History Advance Directives: No Advance Directives Information Provided: Yes Physical Exam ED Vital Signs: Vital Signs - 24 hr 10/15/24 10:11 10/15/24 10:43 Temperature 98 F 98 F Pulse Rate 80 80 Respiratory Rate 16 16 Blood Pressure 126/89 126/89 Pulse Oximetry 96 96 Oxygen Delivery Method Room Air Room Air BMI result Body Mass Index 36.9 Const General: cooperative, healthy appearing, comfortable and no acute distress Orientation/consciousness: patient oriented x3 Limitations: no limitations HENMT Head: Yes normal to inspection Ears: hearing grossly normal bilaterally General nose exam: Normal external nose present Face and sinus: Yes normal facial exam Mouth: Normal oral and palatal mucosa present Throat: Yes posterior oropharynx normal Eyes General: appearance normal, both eyes and all related structures Pupils: Equal, round and reactive pupils present Neck Neck: Yes normal visual inspection Chest Chest palpation & inspection: normal inspection of the chest Resp Effort & Inspection: normal respiratory effort Auscultation: clear to auscultation bilaterally Cardio Rate: regular rate Rhythm: regular rhythm Peripheral pulses: Peripheral pulses 2+ throughout GI Other: From the 12 o'clock to 6 o'clock position there is a external hemorrhoid noted. There is a small area of ecchymosis noted. There is tenderness to palpation. Inspection: Yes normal to inspection Palpation (GI): Soft to palpation and nontender Auscultation: normal bowel sounds Back/Spine/Pelvis Thoracic/Lumbar Spine: thoracic and lumbar spine normal to inspection Skin General skin exam: no rashes or lesions noted Neuro General: patient oriented x3, no focal motor deficits and normal sensation to monofilament Cranial nerves: Yes Equal, round and reactive pupils present Cognition (Neuro): normal cognition Speech: No Abnormal speech present Gait exam (Neuro): Normal gait present Motor exam (neuro): 5/5 motor strength present throughout Extrem General: Yes normal to inspection Medical Decision Making Medical Decision Making MDM Narrative: 39 yo male with history of psoriasis here with complaints Of rectal pain since Thursday. Patient reports initially he felt some pain and swelling in his rectal area and then had a large amount of bleeding for several days. He reports with time swelling has improved as well as pain. He is no longer having any bleeding. He denies any history of hemorrhoids. He did speak to his primary care doctor who recommended he take Colace twice daily which he has been taking. He initially had constipation but feels that this is improved. He denies any associated abdominal pain, vomiting. No personal or family history of rectal or colon cancer. He has never had a colonoscopy before. 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 External hemorrhoid noted on exam. There is no active bleeding. Likely patient had a thrombosed hemorrhoid initially, there is now a residual hemorrhoid. There is still some tenderness and mild fluctuance. At this point I do not believe that the patient would benefit from additional incision and drainage. He would likely benefit from seeing outpatient surgery. Therefore I will provide him with contact information to follow-up with them. I did recommend he avoid constipation. We discussed dietary changes, continuing Colace and adding MiraLax. Will also prescribe him Anusol. Reviewed worrisome signs and symptoms of when to return to the emergency room. Comfortable plan for discharge home. Differential Diagnosis Differential Diagnoses: The differential diagnosis associated with the presentation includes Hemorrhoid, thrombosed h hemorrhoid low suspicion for GI bleed, diverticulitis, appendicitis based on clinical exam Admission/Observation Consideration of admission/observation: Escalation of care including admission/observation considered Independent Historian Clinical information obtained from an independent historian. History obtained from or confirmed by: Other (sister) Prescription Management I considered prescription management with: Pain Medication Discharge Plan Discharge Clinical Impression: External hemorrhoid Patient Disposition: Home, Self-Care Instructions: Hemorrhoids (ED) Additional Instructions: avoid constipation. Continue Colace. Consider adding MiraLax once or twice daily Prescriptions: New hydrocortisone [[employer] HC] 2.5 % cream with perineal applicator 1 appl [place] DAILY PRN (Reason: hemorrhoids) Qty: 30 0RF Referrals: Lio Montoya MD [Physician, General Surgery] - 2 weeks Physician,Unknown J [Physician, Medical] Interventions: ED Discharge Assessment Last Done: 10/15/24 10:43 Print Language: Armenian
[2024-10-15 10:43] VITALS: BP 126/89; PULSE 80; RESP 16; TEMP 36.6; O2SAT 96
--- OUTSIDE RECORDS SUMMARY | 2024-10-15 10:48 | XMS_ITS | Clinical Summary ---
Author Organization [employer] Address [address] [facility] [address] [place] [address] Care Team Providers Care Commissioned Defence [employer] Officer Name Role Phone Katarinacollin Regina BRENNAN Primary Care Provider [phone] Allergies Active Allergy Reactions Criticality Noted Date Comments Levothyroxine Rash Medium 09/12/2024 Sulfa Antibiotics Rash Low 11/11/2016 Medications methotrexate 2.5 MG tabletIndicatio ns:Psoriasis of scalp,Sebopsori asis,Inverse psoriasis Take 6 tablets (15 mg total) by mouth 1 (one) time per week. Follow directions carefully, and ask to explain any part you do not understand. Take exactly as directed. 24 tablet 3 5 Active folic acid (Folvite) 1 MG tabletIndicatio ns:Psoriasis of scalp,Sebopsori asis,Inverse psoriasis Take 1 tablet (1 mg) by mouth Once per day. 30 tablet 11 5 06/25/19 26 Active triamcinolone (Kenalog) 0.025 % creamIndication s:Psoriasis of scalp,Sebopsori asis,Inverse psoriasis Apply topically 2 times daily. 454 g 1 5 Active ketoconazole (NIZOral) 2 % shampooIndicati ons:Sebopsorias is Apply topically 2 (two) times a week. 120 mL 1 5 Active hydrocortisone 1 % creamIndication s:Bright red rectal bleeding Apply topically 2 times daily. For 1 week 14 g 5 Active docusate sodium (Colace) 100 MG capsuleIndicati ons:Bright red rectal bleeding Take 1 capsule (100 mg) by mouth 2 times daily. 180 capsule 5 12/12/19 25 Active Active Problems Problem Noted Date Diagnosed [...] had rash w/ levothyroxine and stopped in [facility]. 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); Obesity (BMI 30-39.9); Sexually transmitted disease counseling; Bright red rectal bleeding 09/12/2024 Travel 09/02/2024 Patient Outreach [facility] [address] [place] [address] Regina Moran NP Pre-visit Planning ([facility] unable to reach LVM) 07/21/2024 Telephone [facility] [address] [place] [address] Regina Moran NP Appointment Request from Last [...] Description 10/28/2024 9:15 AM EDT Office Visit [facility] [address] [place] [address] Bernabe Lucero MD [address] [place] [address] Health Maintenance Due Date Last Done Comments Family Planning (PISQ) 2002 HPV Vaccines (1 - Male 3-dos e series) 2002 Hepatitis B Vaccines (1 of 3 - 19+ 3-dose series) 2006 COVID-19 Vaccine (1 - 2023-2 5 season) 2023 Influenza Vaccine (#1) 2024 Alcohol/Substance Use Screening 09/12/2025 09/12/2024 Depression Screening 09/12/2025 09/12/2024, 09/12/2024 Disability Screening 09/12/2025 09/12/2024 SDOH Screening 09/12/2025 09/12/2024 Tobacco Screening 09/12/2025 09/12/2024 DTaP/Tdap/Td Vaccines (3 - T d or Tdap) 12/29/2028 12/29/2018, 02/04/2018 Lipid Panel 09/12/2029 09/12/2024, 10/14/2021 Zoster Vaccines (1 of 2) 2037 RSV Patients and Patients Aged 60 years or older (1 - 1-dose 75+ series) 2062 Hepatitis C Screening Completed 06/24/2024 HIV Screening Completed 09/12/2024, 06/24/2024, 10/14/2021 HIB Vaccines Aged Out No longer [...] Procedure Name Priority Date/Time Associated Diagnosis Comments HEMOGLOBIN A1C Routine 09/12/2024 2:03 PM EDT Obesity (BMI 30-39.9) LIPID PANEL, STANDARD Routine 09/12/2024 2:03 PM EDT Obesity (BMI 30-39.9) TSH W/REFLEX TO FT4 Routine 09/12/2024 2 :03 PM EDT Hypothyroidism due to Fernanda thyroiditis SYPHILIS SCREEN Routine 09/12/2024 2:03 PM EDT Sexually transmitted disease counseling HIV 1/2 ANTIGEN/ANTIBODY, FOURTH GENERATION W/RFL Routine 09/12/2024 2:03 PM EDT Sexually transmitted disease counseling HEPATITIS PANEL, GENERAL Routine 06/24/2024 10:08 AM EDT Psoriasis of scalp Sebopsoriasis Inverse psoriasis from Last 3 Months or Most Recently Relevant to Health Maintenance Results * Syphilis Screen (09/12/2024 2:03 PM EDT) Pathologist [facility] Syphilis Screen Nonreactive Nonreactive [facility] Blood Venous blood specimen / Unknown 09/12/2024 2:03 PM EDT 09/12/2024 4:04 PM EDT [facility] ARCHITECTURAL DESIGN PROFESSOR LAB BLOOD ORDERABLES Final Resu lt Performing Organization Address [facility]/ZIP Co de Phone Number [facility] [address] [place] [phone] * TSH W/Reflex to FT4 (09/12/2024 2:03 PM EDT) Pathologist [facility] TSH reflex Free T4 2.55 0.32 - 4.0 uIU/mL [facility] Blood Venous blood specimen / Unknown 09/12/2024 2:03 PM EDT 09/12/2024 4:04 PM EDT [facility] LAB BLOOD ORDERABLES Final Resu lt Performing Organization Address City/[facility]/ZIP Co de Phone Number [facility] [address] [place] [phone] * HIV-1/2 Antigen and Antibodies, Fourth Generation, with Reflexes (09/12/2024 2:03 PM EDT) Pathologist [facility] HIV AB/AG Nonreactive Nonreactive [facility] Comment:HIV-1 p24 Ag and/or HIV-1/HIV-2 Ab not detected.A test result that is nonreactive does not exclude thepossibility of exposure to or infection with HIV-1 and/orHIV-2. Nonreactive results in this assay for individualswith prior exposure to HIV-1 and/or HIV-2 may be due toantigen and antibody levels that are below the limit ofdetection of this assay.The [employer] HIV Ag/Ab Combo assay result andsupplemental assay results should be interpreted inconjunction with the patient's clinical presentation,history and other laboratory results. If the results areinconsistent with clinical evidence, additional testing issuggested to confirm the result. Blood Venous blood specimen / Unknown 09/12/2024 2:03 PM EDT 09/12/2024 4:04 PM EDT [facility] BLOOD ORDERABLES Final Resu lt Performing Organization Address [facility] Co de Phone Number [facility] [address] [place] [phone] * Hemoglobin A1c (09/12/2024 2:03 PM EDT) Hemoglobin A1c 5.1 <6.0 % [facility] Comment:Hemoglobin A1C Refer ence Range Adults: 4.8 - 6.0 % Non diabetic: < 6.0 % Goal: < 7.0 %Additional Action Suggested: > 8.0 %Note: Hemoglobin A1c results are invalid for patients with abnormal amounts of HbF. Blood transfusions may impact the HbA1c concentration in the patient sample. Estimated Average Glucose 100 mg/dL [facility] Comment:eAG = Estimated ave rage glucose which is %A1C expressed asaverage glucose, using the formula of the [id number] Glucose study (ADAG), Diabetes Care, Vol.31,#8,Oct. 2007 Blood Venous blood specimen / Unknown 09/12/2024 2:03 PM EDT 09/12/2024 4:04 PM EDT [facility] LAB BLOOD ORDERABLES Final Resu lt Performing Organization Address [facility] Co de Phone Number [facility] [address] [place] [phone] * (ABNORMAL) Lipid Panel, Standard (09/12/2024 2:03 PM EDT) Triglycerides 174(H) <150 mg/dL [facility] Comment:Desirable Triglyceri de: less than 150 mg/dLBorderline High Triglyceride 150-199 mg/dLHigh Triglyceride: 200-499 mg/dLVery High Triglyceride: greater than or equal to 5OO mg/dL Cholesterol 187 <200 mg/dL [facility] Comment:Desirable Cholestero l: less than 200 mg/dLBorderline High Cholesterol: 200-239 mg/dLHigh Cholesterol: greater than 239 mg/dL LDL Cholesterol Calculated 115(H) <100 mg/dL [facility] Comment:Desirable LDL: less than 100 mg/dLNear Optimal/Above Optimal LDL: 110- 129 mg/dLBorderline High LDL: 130-159 mg/dLHigh LDL: 160-189 mg/dLVery High LDL: greater than or equal to 190 mg/dL HDL Cholesterol 38(L) >40 mg/dL [facility] Comment:Desirable HDL: great er than 40 mg/dL Note: This HDL assay may give artificially low results in patients with liver disease. Blood Venous blood specimen / Unknown 09/12/2024 2:03 PM EDT 09/12/2024 4:04 PM EDT Regina Moran NP LAB BLOOD ORDERABLES Final Resu lt [facility] [address] [place] [phone] * Hepatitis A,B,C Profile (06/24/2024 10:08 AM EDT) Pathologist [facility] Hepatitis A IgM Nonreactive Nonreactive [facility] Comment:IgM antibodies to PETTY V not detected; does not exclude earlyacute or recovered HAV infection. ~Hepatitis B Surface Antibody NONREACTIVE Nonreactive [facility] Comment:Nonreactive: < 8.00 mIU/mL Hepatitis B Core Antibody Nonreactive Nonreactive [facility] Hepatitis C Antibody Nonreactive Nonreactive [facility] Comment:Antibodies to HCV no t detected; does not exclude early acuteHCV infection. Hepatitis B Surface Ag Negative Negative [facility] Blood Venous blood specimen / Unknown 06/24/2024 10:08 AM EDT 06/24/2024 11:18 AM EDT us Bernabe Lucero MD LAB BLOOD ORDERABLES Final Re sult [facility] [address] [place] [phone] from Last 3 Months or Most Recently Relevant to Health Maintenance Insurance BCBS PPO Care Teams Commissioned Defence [employer] Officer Relationship Specialty Start Date End Date Regina Moran NP [address] [place] [phone] PCP - General Family Medicine 11/25/23
--- OUTSIDE RECORDS SUMMARY | 2024-10-15 10:48 | XMS_ITS | Clinical Summary ---
Author Organization [employer] [facility] ity Address [address] [place] [address] Care Team Providers Care Licensed Sales Assistant Name Role Phone Unavailable Primary Care Provider [...] 2006 COVID-19 Vaccine (2023-2 5 season) 2023 Depression Screening 03/23/2024 Influenza Vaccine (#1) 2024 HIB Vaccines Aged Out No longer [...] 5 Years) and At-Risk Patients (6 to 49 Years) Aged Out No longer eligible b ased on patient's age to complete this topic RSV Immunization Patients Un dora 20 months Aged Out No longer eligible b ased on patient's age to complete this topic Varicella Vaccines Aged Out No longer eligible based on patient's age to complete this topic
--- OUTSIDE RECORDS SUMMARY | 2024-10-15 10:48 | XMS_ITS | Clinical Summary ---
Author Organization [facility] Address [address] [place] [address] Care Team Providers Care Cattle Shipper Name Role Phone Beth Beverlyreet MANAGER CREDIT Primary Care Provider [phone] Source Comments PLEASE NOTE, if this patient [...] had rash w/ levothyroxine and stopped in [facility] ER. 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 Not on file Not on file Not on file Last Filed Vital Signs Vital Sign Reading Time Taken Comments Blood Pressure 110/68 02/04/2018 10:21 AM EST Pulse 68 02/04/2018 10:21 AM EST Temperature 36.4 C (97.5 F) 02/04/2018 10:21 AM EST Respiratory Rate 16 02/04/2018 10:21 AM EST Oxygen Saturation - - Inhaled Oxygen Concentration - - Weight 91.2 kg (201 lb) 02/04/2018 10:21 AM EST Height 176 cm (5' 9.29 ) 02/04/2018 10:21 AM EST Body Mass Index 29.43 02/04/2018 10:21 AM EST Plan of Treatment Not on file Insurance [employer] Care Teams Cattle Shipper Relationship Specialty Start Date End Date Loc Beverly NP [address] [place] [phone] PCP - General MANAGER CREDIT Nurse Practitioner 01/21/18
== END 2024-10-15 10:59 | disposition home or self-care (01) ==
PROVIDERS: Emergency Provider Emergency Medicine; PCP Nurse Practitioner
DX: K64.4 Residual hemorrhoidal skin tags (principal); K62.89 Other specified diseases of anus and rectum
CPT/HCPCS: 99282; 99283